=== PATIENT | female | born 1980 | race Caucasian/White ===

== ENCOUNTER 2021-07-16 17:02 | Outpatient (CLI) | payer SELFPAY | END 2021-07-16 23:59 | disposition home or self-care (01) | LOC: LAB.N 17:02 | PROVIDERS: ATTEND Family Medicine | DX: R39.9 Unspecified symptoms and signs involving the genitourinary system (principal); N39.0 Urinary tract infection, site not specified | CPT/HCPCS: 87086 ==

== ENCOUNTER 2022-07-31 05:57 | Outpatient (CLI) | payer OTHER | END 2022-07-31 05:58 | disposition critical access hospital (66) | LOC: EMS 05:57 | DX: S49.91XA Unspecified injury of right shoulder and upper arm, initial encounter (principal); V28.4XXA Motorcycle driver injured in noncollision transport accident in traffic accident, initial encounter; Y92.413 State road as the place of occurrence of the external cause | CPT/HCPCS: A0425; A0429 ==

== ENCOUNTER 2022-07-31 06:16 | Emergency (ER) | payer OTHER ==
[2022-07-31] MEDS ORDERED: HYDROcod/ACETAM 5/325 MG TABLET PO STA (06:34)
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
[2022-07-31 07:36] VITALS: BP 116/74
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
== END 2022-07-31 08:00 | disposition home or self-care (01) ==
LOC: EDUNIT# → ED 06:16
DX: S42.021A Displaced fracture of shaft of right clavicle, initial encounter for closed fracture (principal); V29.9XXA Motorcycle rider (driver) (passenger) injured in unspecified traffic accident, initial encounter; F17.200 Nicotine dependence, unspecified, uncomplicated
CPT/HCPCS: 73030; 99283; 99284; A9270